=== PATIENT | female | born 1970 | race Caucasian/White ===

== ENCOUNTER → 2017-06-08 09:56 | Outpatient (CLI) | payer SELFPAY ==
--- NOTE | 2017-06-08 09:58 | RAD_ITS ---
STUDY: X-RAY - RIGHT HAND REASON FOR EXAM: Female, 47 years old. Painful first digit. TECHNIQUE: Three view(s) of the hand. COMPARISON: None. FINDINGS: Bones: There are no acute osseous abnormalities. Joints: There is mild arthrosis of the radial carpal row. There is mild arthrosis of the first carpometacarpal joint. There is mild arthrosis of the metacarpophalangeal and interphalangeal joints. Soft tissues: The soft tissues are unremarkable. Foreign body: None RAD/Hand Min 3 Views IMPRESSION: Osteoarthritic changes. No acute pathology. Electronically Signed: Javi Matos MD at 10:09 EDT , Service support ,
== END ==
PROVIDERS: Family Provider Family Medicine; PCP Family Medicine; Visit Provider Orthopaedic Surgery
DX: M79.641 Pain in right hand (principal)
CPT/HCPCS: 73130

== ENCOUNTER → 2018-08-30 09:28 | Outpatient (CLI) | payer SELFPAY ==
[2018-08-30 09:21] VITALS: BMI 31.8
--- NOTE | 2018-08-30 09:30 | RAD_ITS ---
STUDY: X-RAY - RIGHT ELBOW REASON FOR EXAM: Female, 48 years old. Atraumatic posterior elbow pain. TECHNIQUE: 3 view(s) of the elbow. COMPARISON: None. FINDINGS: Normal visualized humerus, radius and ulna. Normal radiocapitellar and ulnotrochlear articulations. There is ossification of both the common extensor and common flexor tendon origins. RAD/Elbow min 3 Views IMPRESSION: Opacification of common flexor and common extensor tendon origins. No acute finding. Electronically Signed: Javi Matos MD at 13:06 EDT , Service support ,
== END ==
PROVIDERS: Family Provider Family Medicine; PCP Family Medicine; Referring Provider Orthopaedic Surgery; Visit Provider Orthopaedic Surgery
DX: M25.521 Pain in right elbow (principal)
CPT/HCPCS: 73080

== ENCOUNTER 2018-09-13 11:50 | Outpatient (RCR) | payer SELFPAY ==
[2018-08-30 10:15] VITALS: BMI 31.8
[2018-09-13 11:43] VITALS: BMI 31.8
--- NOTE | 2018-09-13 15:28 | HP.OTEVAL_ITS ---
Patient's Visit Information BARB ELIAS is a 48 year old F, referred to Occupational Therapy by Adry Gonzalez DO, with a diagnosis of right lateral epicondylitis, posterior impingment. Date of Evaluation: 09/13/18 Occupational Therapist: Nery Rivas, FRANKO/Angelika, CHT - Subjective Subjective: This 48 Year old female was seen for OT eval with dx of right lateral eipicondylitis, posterior impingiment. PT sates she has had symptons on and off for about 6 months. PT did have cortisone shot to right elbow on August 30, 2018. pt states her left elbow is feeling better. 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 Pt would like exercises that will help her feel better. - Pain left UE 2 Pain Intensity Range: 0, 3 - ROM Shoulder: BUE demo WFL Elbow: WNL Forearm: wnl - Strength Research Computing Specialist: right 50# left 55# right arm straight 35# left 60# Lateral Pinch: right 16# left 18# Tripod Pinch: right 12# left 13# - Goals Goal:: PT will demo a increase in right plumber pipe fitting strength by 20# with no pain to increase ind. with adls and IADls. Goal:: pt will negative Stinson test indicating full ROM for ADLs and IADLS by d/c Goal:: pt will report pain no greater than 1/10 with daily occupations by d/c - Rehabilitation General Assessment: pt continues to have lateral epicondylitis symptoms of right UE, and the feeling of right shoulder pain/tightness with end range of motion. Pain and weakness is limiting factor for pt to perform her daily tasks ind. PT would benefit from skilled OT services to ed. pt on protective marbin. ROM , str etching, PRE and modalities to return pt to PLOF. Today pt was ed. on dx and protective/ modification with right UE use for daily tasks. Pt also ed on Stretching and eccentric/ PRE to return pt to PLOF. pt given handout and agrees to POC. Due to pts self pay she requested HEP and was given one- Exercises provided by office were reviewed by therapist Rehabilitation Potential: Good - Anticipated Interventions Anticipated Interventions: Strengthening, Modalities, Ergonomic Education, Education re Diagnosis - Visit Plan TEXT: Thank you for the opportunity to evaluate your patient. For Medicare and Medicare HMO plans, please review the plan of care and approve it. It will need to be FAXED BACK to us at [phone] for Medicare purposes. Please let me know if there are questions or concerns regarding this plan of care. Physician Signature: Date:
--- NOTE | 2019-02-20 08:52 | HP.OT.NRP ---
HP - Discharge Summary - Patient Information BARB ELIAS was seen in my office for initial evaluation on 09/13/18. The following Plan of Care was established for this patient: - Anticipated Interventions Anticipated Interventions: Strengthening, Modalities, Ergonomic Education, Education re Diagnosis This patient was last seen in our office 09/13/18. Pertinent comments regarding their Occupational therapy will appear below: pt seen for eval only- pt did not schedule further apts and due to time lapse in care pt D/C At this point I will be discontinuing this patient from occupational therapy. I would be happy to see this patient again in the future if found appropriate by the physician. Thank you! Nery Rivas, OTR/L, CHT
== END 2018-09-13 19:00 | disposition home or self-care (01) ==
LOC: OT 11:50
PROVIDERS: Family Provider Family Medicine; PCP Family Medicine; Referring Provider Orthopaedic Surgery; Visit Provider Orthopaedic Surgery
DX: M77.11 Lateral epicondylitis, right elbow (principal); M25.821 Other specified joint disorders, right elbow
CPT/HCPCS: 97110; 97166